=== PATIENT | male | born 1995 | race Caucasian/White ===

== ENCOUNTER → 2024-04-14 | Outpatient (CLI) | payer SELFPAY | END | disposition home or self-care (01) | PROVIDERS: Referring Provider Physician Assistant; Visit Provider Physician Assistant | DX: J02.9 Acute pharyngitis, unspecified (principal) | CPT/HCPCS: 87070 ==

== ENCOUNTER 2024-04-17 11:36 | Emergency (ER) | payer SELFPAY ==
[2024-04-17 11:36] VITALS: BP 155/75; PULSE 72; RESP 14; TEMP 37.2; O2SAT 98; BMI 32.3
--- NOTE | 2024-04-17 13:00 | EDS_ITS ---
HPI HPI - URI History of Present Illness Chief Complaint: Sore Throat Informant: patient Narrative Narrative: 28-year-old male presenting to the emergency room with sore throat. Patient states that for about a week he has pain in his throat. He now he is noticing some mucus production and slight cough. States that he went to urgent care and was told that he did not have tonsillitis or strep throat. He states he has been trying numerous [id number] medicines but nothing is helping. He states that he is very upset that nobody is willing to help him and he had already spent $160 and cannot afford more medical cost. He denies any rashes. He does note some vomiting. He feels like his throat is swallowing glass. He has a video of his throat that you are going to watch spoken in a very direct and absolute manner. I did review the patient's prior labs and he had a negative throat culture for beta-hemolytic organisms. ROS ROS ED Constitutional Constitutional ED: Denies chills or weight loss Eyes Eyes: Denies change in vision or diplopia ENT ENT ED: Reports sore throat; Denies ear pain or rhinorrhea Cardiovascular Cardiovascular: Denies chest pain, orthopnea, palpitations or racing heartbeat Respiratory/Chest Respiratory/Chest: Reports cough and sputum; Denies dyspnea or orthopnea Gastrointestinal Gastrointestinal: Reports vomiting; Denies abdominal pain, diarrhea or nausea Genitourinary Genitourinary ED: Denies dysuria, hematuria or urinary frequency Musculoskeletal Musculoskeletal: Denies arthralgias or myalgias Integumentary Denies abscess or rash Neurologic Neurologic: Denies headache(s) or weakness Psychiatric Psychiatric: Denies anxiety, depression, suicidal ideation or suicidal thoughts Endocrine Endocrinology: Denies polydipsia, polyphagia or polyuria Allergic/Immunologic Allergic/Immunologic ED: Denies mouth swelling, tongue swelling or urticaria PFSH PFSH Medical History no medical history Home Medications ?Medication ?Instructions ?Recorded ?Last Taken ?Type amoxicillin 875 mg-potassium 875 mg PO Q12H #20 TABLETS 04/17/24 Unknown Rx clavulanate 125 mg tablet Allergy/AdvReac Type Severity Reaction Status Date / Time bee venom protein (honey Allergy other Verified 04/17/24 11:37 bee) (bees) menthol Allergy other Verified 04/17/24 11:37 Family History no significant family his Surgical History no surgical history Social History Smoking Status: Current every day smoker tobacco type: cigarettes EXAM Physical Exam Const Vital Signs: 04/17/24 11:36 04/17/24 14:24 Temperature 99 F 97.2 F L Temperature Source Temporal Pulse Rate 72 85 Respiratory Rate 14 18 Blood Pressure 155/75 H 155/75 H Blood Pressure Mean 101 101 Pulse Ox 98 99 Oxygen Delivery Method Room Air Positive well nourished, well developed and obese General Appearance ED: well developed and NAD Nutritional Appearance: obese HEENT Reports normocephalic, head/scalp atraumatic and moist mucous membranes HEENT Narrative: Bilateral tonsillar exudate and mild swelling. There is erythema posteriorly. There is no obvious pharyngeal or retropharyngeal abscess. Secretions are normal. No palatal petechiae. Handling secretions normally. No stridor. Eyes PERRL and EOMs intact bilaterally Neck supple and no JVD Neck Narrative: Mild anterior lymphadenopathy Resp normal respiratory effort and clear to auscultation bilaterally Cardio regular rate, regular rhythm and no murmurs GI normal to inspection, nondistended, normoactive bowel sounds and non-tender Palpation: soft Back/Spine no CVA tenderness and normal ROM Extremity normal to inspection General Extremety ED: Negative for edema General Extremity: Negative for edema Neuro oriented x3 and CN's II-XII intact bilaterally Sensorium / Orientation: alert Motor Exam: strength 5/5 throughout Psych mental status grossly normal Mood & Affect: Negative for depressed or tearful Skin no rashes or lesions noted and no wounds MDM MDM MDM Narrative Medical decision making narrative: Differential diagnosis includes but not limited to exudative pharyngitis viral syndrome mononucleosis peritonsillar retropharyngeal abscess White count is 10 with 75.9 neutrophils 13.2 lymphocytes 10.2 monocytes. Monoscreen is negative. Throat culture was obtained and sent. Patient will be started on Augmentin. I think this is most likely an exudative tonsillitis. History & Record Review Discussion w/independent historian: Patient Additional record(s) reviewed:: Prior labs Lab Data Attestation: I reviewed the patient's lab results. Labs: Laboratory Results - last 24 hr 04/17/24 04/17/24 13:18 14:00 WBC 10.0 RBC 4.70 Hgb 13.5 Hct 41.5 MCV 88.3 MCH 28.7 MCHC 32.5 RDW Std Deviation 42.1 RDW Coeff of Channing 12.8 Plt Count 272 MPV 11.0 Immature Gran % (Auto) 0.300 Neut % (Auto) 75.9 H Lymph % (Auto) 13.2 L Swain % (Auto) 10.2 H Eos % (Auto) 0.1 Baso % (Auto) 0.3 Absolute Neuts (auto) 7.6 Absolute Lymphs (auto) 1.32 Nucleated RBC % 0 Monoscreen Negative Discharge Plan Triage Chief Complaint: Sore Throat ED Provider: Scott Adamson Dx/Rx/DC Orders Clinical Impression: Acute pharyngitis Instructions: ED Pharyngitis, Report Pending Prescriptions: New amoxicillin-pot clavulanate 875-125 mg tablet 875 mg PO Q12H Qty: 20 0RF Stand Alone Forms: ED Work / School Excuse Primary Care Provider: Care Physician,No Primary Referrals: Care Physician,No Primary [Primary Care Provider] - Khadijah Pena [facility], DO [[facility]] - 1 Week if not improving (for primary care) Print Language: Swazi Disposition Disposition: Home, Self Care
[2024-04-17 14:07] LABS: Internal QC Validated? YES +Cl - CLEAR BKGD; Monotest Negative (Negative); Record Kit Lot#, Mono 13241033
[2024-04-17 14:10] LABS: Absolute Lymphocyte Count 1.32 X10^3/uL (0.83-4.51); Absolute Neutrophil Count 7.6 X10^3/uL (2.0-7.7); Basophil# 0.03 X10^3/uL; Basophil% 0.3 % (0-1); Eosinophil# 0.01 X10^3/uL; Eosinophils% 0.1 % (0-5); Hematocrit 41.5 % (40-54); Hemoglobin 13.5 g/dL (13.0-16.5); Lymphocyte # 1.32 X10^3/ul (0.83-4.51); Lymphocyte % 13.2 % (19-41); Mean Corp Hgb Conc 32.5 g/dL (32-36); Mean Corpuscular Hgb 28.7 pg (27.0-32.0); Mean Corpuscular Volume 88.3 fL (80-94); Monocyte# 1.02 X10^3/uL; Monocyte% 10.2 % (0-10); NRBC Flagged by Analyzer 0 % (0-5); Neutrophil # 7.56 X10^3/uL (2.7-7.7); Neutrophil % 75.9 % (47-70); Platelet Count 272 K/mm3 (150-450); RBC Distribution Width CV 12.8 % (11.6-14.6); RBC Distribution Width SD 42.1 fl (35.1-43.9)
[2024-04-17 14:24] VITALS: BP 155/75; PULSE 85; RESP 18; TEMP 36.2; O2SAT 99
== END 2024-04-17 14:26 | disposition home or self-care (01) ==
PROVIDERS: Emergency Provider Emergency Medicine; Visit Provider Emergency Medicine
DX: J02.9 Acute pharyngitis, unspecified (principal); R11.10 Vomiting, unspecified; F17.210 Nicotine dependence, cigarettes, uncomplicated; E66.9 Obesity, unspecified
CPT/HCPCS: 36415; 85025; 86308; 87070; 99282

== ENCOUNTER 2024-04-19 10:46 | Emergency (ER) | payer SELFPAY ==
[2024-04-19 10:48] VITALS: BP 138/103; PULSE 77; RESP 16; TEMP 36.9; O2SAT 99; BMI 31.0
--- NOTE | 2024-04-19 11:13 | CT_ITS ---
EXAM: CT NECK WITH INTRAVENOUS CONTRAST CLINICAL INDICATION: epiglottitis TECHNIQUE: Helically acquired images were obtained of the neck with intravenous contrast. This CT exam was performed using one or more of the following dose reduction techniques: automated exposure control, adjustment of the mA and/or kV according to patient size, and/or use of iterative reconstruction technique. CONTRAST: IV 75mL Isovue-370 COMPARISON: No relevant prior studies available. FINDINGS: NASOPHARYNX: Normal. SUPRAHYOID NECK: Normal. Oropharynx, oral cavity, parapharyngeal space and retropharyngeal space are unremarkable. INFRAHYOID NECK: Normal. Normal epiglottis. SUBMANDIBULAR/PAROTID GLANDS: Salivary glands are normal in size. THYROID: Normal. No thyroid nodules or calcification. BONES/JOINTS: No suspicious lytic or blastic abnormality. SOFT TISSUES: Normal. VASCULATURE: No acute findings. LYMPH NODES: Mildly enlarged tonsillar tissue without abscess. Mildly enlarged level 2 and level 3 cervical lymph nodes consistent with reactive change. LUNG APICES: Unremarkable as visualized. CT/Soft Tissue Neck WITH Contrast IMPRESSION: 1. No evidence of epiglottitis. 2. Reactive lymphadenopathy Electronically Signed: Jordon Cronin MD at 11:59 EST ,
--- NOTE | 2024-04-19 11:18 | EX.ED.DYSGE1 ---
HPI History of Present Illness Chief Complaint: Sore Throat Informant: patient Narrative Narrative: 28-year-old male presenting to the emergency room with continued sore throat. Patient was assessed by this physician not quite 48 hours ago. That time he noted about a 1 week history of sore throat with a negative rapid strep and culture from urgent care. His Monospot was negative. I started him on Augmentin. He states that he feels his throat is worse. He states he cannot handle his secretions and that his tongue and throat are very swollen. No fevers. He continues to note vomiting. No rashes. PFSH PFSH Home Medications ?Medication ?Instructions ?Recorded ?Last Taken ?Type amoxicillin 875 mg-potassium 875 mg PO Q12H #20 TABLETS 04/17/24 Unknown Rx clavulanate 125 mg tablet hydrocodone 10 mg-acetaminophen 15 ml PO Q8H PRN pain 3 days #180 04/19/24 Unknown Rx 325 mg/15 mL (15 mL) oral solution mL Allergy/AdvReac Type Severity Reaction Status Date / Time bee venom protein (honey Allergy other Verified 04/17/24 11:37 bee) (bees) menthol Allergy other Verified 04/17/24 11:37 Social History Smoking Status: Current every day smoker tobacco type: cigarettes ROS ROS ED Constitutional Constitutional ED: Denies chills, fever(s) or weight loss Eyes Eyes: Denies change in vision or diplopia ENT ENT ED: Reports sore throat; Denies ear pain or rhinorrhea Cardiovascular Cardiovascular: Denies chest pain, orthopnea, palpitations or racing heartbeat Respiratory/Chest Respiratory/Chest: Reports cough; Denies dyspnea or orthopnea Gastrointestinal Gastrointestinal: Reports nausea and vomiting; Denies abdominal pain or diarrhea Genitourinary Genitourinary ED: Denies dysuria, hematuria or urinary frequency Musculoskeletal Musculoskeletal: Denies arthralgias or myalgias Integumentary Denies abscess or rash Neurologic Neurologic: Denies headache(s) or weakness Psychiatric Psychiatric: Denies anxiety, depression, suicidal ideation or suicidal thoughts Endocrine Endocrinology: Denies polydipsia, polyphagia or polyuria Allergic/Immunologic Allergic/Immunologic ED: Denies mouth swelling, tongue swelling or urticaria EXAM Physical Exam Const Vital Signs: 04/19/24 10:48 04/19/24 11:48 Temperature 98.4 F Temperature Source Oral Pulse Rate 77 65 Respiratory Rate 16 16 Blood Pressure 138/103 H 139/89 H Blood Pressure Mean 114 105 Pulse Ox 99 97 Oxygen Delivery Method Room Air Room Air Positive well nourished, well developed and obese General Appearance ED: well developed and NAD Nutritional Appearance: obese HEENT Reports normocephalic, head/scalp atraumatic and moist mucous membranes HEENT Narrative: There is erythema of the oropharyngeal area. I do not see peritonsillar retropharyngeal abscess. There is some exudate particular on the left tonsil with what appears to be more of a developing aphthous ulcer. The uvula is slightly edematous and erythematous. I do not appreciate stridor. Tonsils are not touching the uvula. I do not appreciate significant tongue swelling. Eyes PERRL and EOMs intact bilaterally Neck supple and no JVD Neck Narrative: Scattered slightly tender anterior lymph nodes. Resp normal respiratory effort and clear to auscultation bilaterally Cardio regular rate, regular rhythm and no murmurs GI normal to inspection, nondistended, normoactive bowel sounds and non-tender Palpation: soft Back/Spine no CVA tenderness and normal ROM Extremity normal to inspection General Extremety ED: Negative for edema General Extremity: Negative for edema Neuro oriented x3 and CN's II-XII intact bilaterally Sensorium / Orientation: alert Motor Exam: strength 5/5 throughout Psych mental status grossly normal Mood & Affect: Negative for depressed or tearful Skin no rashes or lesions noted and no wounds MDM MDM MDM Narrative Medical decision making narrative: Differential diagnosis includes but not limited to peritonsillar retropharyngeal abscess epiglottitis viral pharyngitis bacterial pharyngitis White count 13.3 monocytes 11.3 glucose 114 AST of 46 ALT of 56 alk phos 148 monoscreen is again negative. I checked his throat culture which is still pending. CT of the neck with IV contrast was obtained. There is not appear to be any evidence of epiglottitis or abscess at this time. The airway space appears intact. He received a dose of viscous lidocaine which she states did not help. He also received a dose of morphine Zofran which she states did not help and he received a dose of dexamethasone which I do not expect to have results here in the department. Clinically based on what I am seeing today I still do not see a large amount of exudate I do see what looks like the beginnings of more of like an aphthous ulcer I suspect that this is viral in nature. I would recommend ENT follow-up at this point as this is third visit for this. Continue to take his antibiotic in case there is a concomitant bacterial infection. History & Record Review Discussion w/independent historian: Patient Lab Data Attestation: I reviewed the patient's lab results. Labs: Laboratory Results - last 24 hr 04/19/24 04/19/24 11:00 11:25 WBC 13.3 H RBC 5.08 Hgb 14.6 Hct 44.3 MCV 87.2 MCH 28.7 MCHC 33.0 RDW Std Deviation 40.6 RDW Coeff of Channing 12.6 Plt Count 396 MPV 11.2 Immature Gran % (Auto) 0.300 Neut % (Auto) 67.0 Lymph % (Auto) 21.0 Arthur % (Auto) 11.3 H Eos % (Auto) 0.1 Baso % (Auto) 0.3 Absolute Neuts (auto) 8.9 H Absolute Lymphs (auto) 2.79 Nucleated RBC % 0 Sodium 136 Potassium 3.6 Chloride 103 Carbon Dioxide 26.0 Anion Gap 8 BUN 11 Creatinine 0.91 Estim Creat Clear Calc 162.11 Est GFR (MDRD) Af Amer 129 Est GFR (MDRD) Non-Af 106 BUN/Creatinine Ratio 12.1 Glucose 114 H Calcium 10.0 Total Bilirubin 0.40 Direct Bilirubin 0.14 AST 46 H ALT 56 Alkaline Phosphatase 148 H Total Protein 9.0 H Albumin 3.8 Globulin 5.2 H Monoscreen Negative Radiography Diagnostic Testing: Clinical Impression(s) from Imaging Studies Soft Tissue Neck CT 04/19/24 11:13 IMPRESSION: 1. No evidence of epiglottitis. 2. Reactive lymphadenopathy Electronically Signed: Jordon Cronin MD at 11:59 EST , Discharge Plan Triage Chief Complaint: Sore Throat ED Provider: Scott Adamson Dx/Rx/DC Orders Clinical Impression: Acute pharyngitis Instructions: ED Pharyngitis, Report Pending Prescriptions: New hydrocodone-acetaminophen 10-325 mg/15 mL(15 mL) solution 15 ml PO Q8H PRN (Reason: pain) 3 Days Qty: 180 0RF No Action amoxicillin-pot clavulanate 875-125 mg tablet 875 mg PO Q12H Qty: 20 0RF Primary Care Provider: Care Physician,No Primary Referrals: Alexis Joyner MD [Med Staff - Active Staff] - As soon as possible (call to arrange follow up.) Care Physician,No Primary [Primary Care Provider] - Print Language: Sudanese
[2024-04-19] MEDS: Lidocaine 2% Viscous15 ML UDC 15 ML PO (11:22)
[2024-04-19] MEDS: 0.9% Normal Saline (1000mL) 1,000 ML 1000 ML IV (11:22)
[2024-04-19] MEDS: Morphine 4 MG/ML Syringe IV (11:22)
[2024-04-19] MEDS: Ondansetron 4 MG/2 ML Vial IV (11:22)
[2024-04-19] MEDS: dexAMETHasone 10 MG/ML Vial IV (11:22)
[2024-04-19 11:33] LABS: Absolute Lymphocyte Count 2.79 X10^3/uL (0.83-4.51); Absolute Neutrophil Count 8.9 X10^3/uL (2.0-7.7); Basophil# 0.04 X10^3/uL; Basophil% 0.3 % (0-1); Eosinophil# 0.01 X10^3/uL; Eosinophils% 0.1 % (0-5); Hematocrit 44.3 % (40-54); Hemoglobin 14.6 g/dL (13.0-16.5); Lymphocyte # 2.79 X10^3/ul (0.83-4.51); Mean Corpuscular Hgb 28.7 pg (27.0-32.0); Mean Corpuscular Volume 87.2 fL (80-94); Mean Platelet Vol. 11.2 fl (6.2-12.0); Monocyte% 11.3 % (0-10); NRBC Flagged by Analyzer 0 % (0-5); Neutrophil # 8.91 X10^3/uL (2.7-7.7); Platelet Count 396 K/mm3 (150-450); RBC Distribution Width CV 12.6 % (11.6-14.6); RBC Distribution Width SD 40.6 fl (35.1-43.9); Red Blood Count 5.08 M/mm3 (4.6-6.2); White Blood Count 13.3 K/mm3 (4.4-11.0)
[2024-04-19 11:48] VITALS: BP 139/89; PULSE 65; RESP 16; O2SAT 97
[2024-04-19 11:53] LABS: AST(SGOT) 46 U/L (15-37); Alanine Aminotransfer ALT/SGPT 56 U/L (16-61); Albumin, Serum 3.8 g/dL (3.2-5.0); Alkaline Phosphatase 148 U/L (45-117); Anion Gap 8 (5-15); BUN 11 mg/dL (7-18); BUN/Creat Ratio 12.1 RATIO (10-20); Bilirubin, Direct 0.14 mg/dL (0.00-0.30); Chloride 103 mmol/L (98-107); Creatinine, Serum 0.91 mg/dL (0.70-1.30); EST Glomerular Filtration Rate 106 mL/min (>60); Est Glom Filt Rate - Afr Amer 129 mL/min (>60); Estimated Creatinine Clearance 162.11 ml/min; Globulin 5.2 g/dL (2.2-4.2); Glucose 114 mg/dL (74-106); Potassium 3.6 mmol/L (3.5-5.1); Sodium Level 136 mmol/L (136-145)
[2024-04-19 12:19] LABS: Internal QC Validated? YES +Cl - CLEAR BKGD; Monotest Negative (Negative); Record Kit Lot#, Mono 13241033
[2024-04-19 13:00] VITALS: BP 141/81; PULSE 69; RESP 16; O2SAT 98
== END 2024-04-19 13:14 | disposition home or self-care (01) ==
PROVIDERS: Emergency Provider Emergency Medicine; Referring Provider Emergency Medicine; Visit Provider Emergency Medicine
DX: J02.9 Acute pharyngitis, unspecified (principal); R11.10 Vomiting, unspecified; F17.210 Nicotine dependence, cigarettes, uncomplicated
CPT/HCPCS: 70491; 80048; 80076; 85025; 86308; 96361; 96374; 96375; 99283; Q9967; A4216; J2405

== ENCOUNTER 2024-04-23 09:29 | Emergency (ER) | payer SELFPAY ==
[2024-04-23 09:29] VITALS: BP 139/89; PULSE 74; RESP 14; TEMP 37.2; O2SAT 97; BMI 30.5
--- NOTE | 2024-04-23 10:18 | EX.ED.DYSGE1 ---
HPI History of Present Illness Chief Complaint: Sore Throat Narrative Narrative: Patient is a 28-year-old male with no known significant past medical history who presented to the emergency department the chief complaint of sore throat. Patient states that this has been going on for approximately a week now and notes that has been seen multiple times. He states that he has been taking the medications as prescribed such as the Augmentin, the anti-inflammatories the narcotic that he was prescribed and nothing is helping his symptoms. He states that he did call ears nose and throat and has an appointment coming up on . Patient states that he was here recently and was evaluated and this is when he was given the antibiotic. He states that he does not feel that the antibiotic is helping. Patient states that he does smoke tobacco however he states that he has not smoked ever since this all started. Patient states that he has very minimal alcohol use and denies any IV drug use [facility] Home Medications ?Medication ?Instructions ?Recorded ?Last Taken ?Type amoxicillin 875 mg-potassium 875 mg PO Q12H #20 TABLETS 04/17/24 Unknown Rx clavulanate 125 mg tablet hydrocodone-acetaminophen 5-325mg 1 tab PO Q6H PRN PRN Pain 3 days 04/19/24 Unknown Rx 5mg-325mg #12 TABLETS methylprednisolone 4 mg tablets in See Rx Instructions PO .COMPLEX 04/23/24 Unknown Rx a dose pack (Medrol (Pastor)) #21 tabs valacyclovir 500 mg tablet 500 mg PO DAILY 7 days #7 tabs 04/23/24 Unknown Rx Allergy/AdvReac Type Severity Reaction Status Date / Time bee venom protein (honey Allergy other Verified 04/23/24 09:30 bee) (bees) menthol Allergy other Verified 04/23/24 09:30 Social History Smoking Status: Current every day smoker tobacco type: cigarettes ROS ROS ED ROS Narrative Constitutional: Patient denies any fevers, chills, headaches, lightness, dizziness Eyes, ears, nose, throat: Complains of sore throat and his uvula being swollen and some difficulty with swallowing Cardiovascular: Denies chest pain or palpitations Respiratory: Denies coughing wheezing shortness of breath Abdomen: Denies abdominal pain nausea vomit diarrhea : Denies urinary symptoms Neurological: Denies numbness, weakness, tingling Musculoskeletal: Denies back pain Skin: Denies rashes or lesions EXAM Physical Exam Narrative Exam Narrative: General: Patient lying in bed rest comfortably did not appear to be in acute distress Head: Atraumatic, normocephalic Eyes: PERRL bilateral, EOMI bladder, no conjunctival injection noted, uvula is swollen with white exudate noted, patient does have ulcer noted to the left lateral aspect of the uvula, no evidence of peritonsillar abscess, no sublingual swelling noted Neck: Soft, supple, trachea midline Cardiovascular: Regular rate and rhythm no murmurs gallops rubs noted Respiratory: Clear to auscultation bilaterally Abdomen: Soft, nondistended, nontender to palpation bowel sounds present arms for Extremities: +5/5 strength noted in the bilateral lower extremities Neurological: Patient following commands knew that he was at [facility] years 2023 Skin: Warm, dry, intact no rashes or lesions noted Const Vital Signs: 04/23/24 09:29 Temperature 99 F Temperature Source Temporal Pulse Rate 74 Respiratory Rate 14 Blood Pressure 139/89 H Blood Pressure Mean 105 Pulse Ox 97 Oxygen Delivery Method Room Air MDM MDM MDM Narrative Medical decision making narrative: Patient is a 28-year-old male who presented to the emergency department the chief complaint of swollen uvula, his symptoms not improving. Patient will have a workup performed here on the differential diagnose includes but not limited to herpes, uvulitis, thrush. Once workup is obtained reviewed he will be reevaluated. Patient's CBC was reviewed and was largely unremarkable no evidence leukocytosis white blood cell count normal at 10.8, hemoglobin 12.8, plate count was noted to be 388. Patient sodium normal at 130, potassium normal 3.5, creatinine of 0.76. Patient's AST and ALT are 28 and 40 respectively. Patient's hepatitis panel is pending. Reevaluation the patient he states that he has some improvement with the Decadron that was given here. Once again on exam he does have the ulcer noted to the posterior pharynx as well as evidence of what appears to be herpetic in nature near his uvula as well. Will place him on valacyclovir and a steroid taper. He is advised to follow-up with the ears nose and throat team that he was scheduled that on . He was encouraged return with worsening symptoms and concerns. Patient is agreeable this plan all question concerns answered he was discharged home in stable condition. Lab Data Labs: Laboratory Results - last 24 hr 04/23/24 10:35 WBC 10.8 RBC 4.45 L Hgb 12.8 L Hct 39.3 L MCV 88.3 MCH 28.8 MCHC 32.6 RDW Std Deviation 40.9 RDW Coeff of Channing 12.6 Plt Count 388 MPV 10.7 Immature Gran % (Auto) 0.400 Neut % (Auto) 73.0 H Lymph % (Auto) 19.1 Crosby % (Auto) 6.3 Eos % (Auto) 0.4 Baso % (Auto) 0.8 Absolute Neuts (auto) 7.9 H Absolute Lymphs (auto) 2.07 Nucleated RBC % 0 Sodium 138 Potassium 3.5 Chloride 106 Carbon Dioxide 28.0 Anion Gap 5 BUN 12 Creatinine 0.76 Estim Creat Clear Calc 192.75 Est GFR (MDRD) Af Amer 159 Est GFR (MDRD) Non-Af 131 BUN/Creatinine Ratio 15.8 Glucose 109 H Calcium 9.3 Total Bilirubin 0.60 AST 28 ALT 40 Alkaline Phosphatase 100 Total Protein 7.7 Albumin 3.4 Globulin 4.3 H Albumin/Globulin Ratio 0.8 L Discharge Plan Triage Chief Complaint: Sore Throat ED Provider: Cecilio Pinzon Dx/Rx/DC Orders Clinical Impression: Acute herpes simplex pharyngitis Prescriptions: New valacyclovir 500 mg tablet 500 mg PO DAILY 7 Days Qty: 7 0RF methylprednisolone [Medrol (Pastor)] 4 mg tablets,dose pack See Rx Instructions .ROUTE .COMPLEX Qty: 21 0RF Rx Instructions: for 6 days No Action amoxicillin-pot clavulanate 875-125 mg tablet 875 mg PO Q12H Qty: 20 0RF hydrocodone-acetaminophen 5-325 mg tablet 1 tab PO Q6H PRN PRN (Reason: Pain) 3 Days Qty: 12 0RF Primary Care Provider: Care Physician,No Primary Referrals: Care Physician,No Primary [Primary Care Provider] - Khadijah Pena [facility], DO [[facility]] - Activity Restrictions/Additional Instructions: Start the steroid taper pack tomorrow as you already received steroids here today. Start the valacyclovir today. Follow-up with your ears nose and throat physician that you are scheduled to see on . Return with worsening symptoms or any other concerns Print Language: Maltese Disposition Disposition: Home, Self Care
[2024-04-23 10:43] LABS: Absolute Lymphocyte Count 2.07 X10^3/uL (0.83-4.51); Absolute Neutrophil Count 7.9 X10^3/uL (2.0-7.7); Basophil# 0.09 X10^3/uL; Basophil% 0.8 % (0-1); Eosinophil# 0.04 X10^3/uL; Eosinophils% 0.4 % (0-5); Hematocrit 39.3 % (40-54); Hemoglobin 12.8 g/dL (13.0-16.5); Lymphocyte # 2.07 X10^3/ul (0.83-4.51); Lymphocyte % 19.1 % (19-41); Mean Corp Hgb Conc 32.6 g/dL (32-36); Mean Corpuscular Hgb 28.8 pg (27.0-32.0); Mean Corpuscular Volume 88.3 fL (80-94); Mean Platelet Vol. 10.7 fl (6.2-12.0); Monocyte# 0.68 X10^3/uL; Monocyte% 6.3 % (0-10); NRBC Flagged by Analyzer 0 % (0-5); Platelet Count 388 K/mm3 (150-450); RBC Distribution Width CV 12.6 % (11.6-14.6); RBC Distribution Width SD 40.9 fl (35.1-43.9); Red Blood Count 4.45 M/mm3 (4.6-6.2); White Blood Count 10.8 K/mm3 (4.4-11.0)
[2024-04-23] MEDS: dexAMETHasone 4 MG Tablet 10 MG PO (10:47)
[2024-04-23 11:04] LABS: ALB/GLOB Ratio 0.8 RATIO (0.9-2.4); AST(SGOT) 28 U/L (15-37); Alanine Aminotransfer ALT/SGPT 40 U/L (16-61); Albumin, Serum 3.4 g/dL (3.2-5.0); Alkaline Phosphatase 100 U/L (45-117); Anion Gap 5 (5-15); BUN 12 mg/dL (7-18); BUN/Creat Ratio 15.8 RATIO (10-20); Calcium,Total 9.3 mg/dL (8.5-10.1); Chloride 106 mmol/L (98-107); Creatinine, Serum 0.76 mg/dL (0.70-1.30); EST Glomerular Filtration Rate 131 mL/min (>60); Est Glom Filt Rate - Afr Amer 159 mL/min (>60); Estimated Creatinine Clearance 192.75 ml/min; Globulin 4.3 g/dL (2.2-4.2); Glucose 109 mg/dL (74-106); Potassium 3.5 mmol/L (3.5-5.1); Protein, Total 7.7 g/dL (6.4-8.2); Sodium Level 138 mmol/L (136-145)
[2024-04-23 13:45] LABS: Hepatitis C Antibody Non-Reactive (Nonreactive)
[2024-04-24 05:07] LABS: Hepatitis A IgM Antibody Negative (Negative); Hepatitis B Core AB IgM Negative (Negative)
== END 2024-04-23 12:31 | disposition home or self-care (01) ==
PROVIDERS: Emergency Provider Emergency Medicine; Visit Provider Emergency Medicine
DX: B00.2 Herpesviral gingivostomatitis and pharyngotonsillitis (principal); J39.2 Other diseases of pharynx; F17.210 Nicotine dependence, cigarettes, uncomplicated
CPT/HCPCS: 80053; 85025; 86705; 86709; 86803; 87040; 99283; A4216